=== PATIENT | male | born 1955 | race Caucasian/White ===

== ENCOUNTER → 2019-07-13 10:41 | Outpatient (CLI) | payer BC, SELFPAY ==
[2019-07-13 10:54] LABS: Bacteria Urine None Seen; RBC Urine None Seen (0-5/HPF); WBC Urine None Seen (0-5/HPF)
[2019-07-13 11:05] LABS: Add Manual Diff / Slide Review NO; Basophils Absolute Auto 0 /uL (0-100); Basophils Percent Auto 0.6 % (0-2); Eosinophils Absolute Auto 100 /uL (0-450); Eosinophils Percent Auto 2.1 % (2-4); Hematocrit 47.8 % (41-53); Hemoglobin 16.1 g/dL (13.5-17.5); Lymphocytes Absolute Auto 1600 /uL (1100-4500); Lymphocytes Percent Auto 33.9 % (25-40); Mean Corpuscular HGB Conc 33.6 % (30-36); Mean Corpuscular Hemoglobin 29.4 PG (26-34); Mean Corpuscular Volume 87.4 fL (80-100); Monocytes Absolute Auto 400 /uL (0-900); Neutrophils Absolute Auto 2700 /uL (1500-7000); Neutrophils Percent Auto 55.4 % (50-75); Platelet Count 229 X10^3/uL (150-400); Red Blood Cell Count 5.47 X10^6/uL (4.5-5.9); Red Cell Distribution Width 14.5 % (11.6-14.8); White Blood Cell Count 4.8 X10^3/uL (4.5-11.0)
[2019-07-13 11:48] LABS: Appearance Urine UA CLEAR; Bilirubin Urine UA NEGATIVE (NEGATIVE); Color Urine UA YELLOW; Glucose Urine UA NEGATIVE (Negative); Ketones Urine UA NEGATIVE (NEGATIVE); Leukocyte Esterase Urine UA NEGATIVE (NEGATIVE); Nitrite Urine UA NEGATIVE (Negative); Occult Blood Urine UA NEGATIVE (Negative); Protein Urine UA NEGATIVE (Negative); Urobilinogen Urine UA 0.2 E.U./dL (0.2); pH Urine UA 5.5 (4.5-8.0)
[2019-07-13 11:52] LABS: Alanine Aminotransferase 34 IU/L (21-72); Albumin 4.4 g/dL (3.5-5.0); Albumin Globulin Ratio 1.8 (1.0-2.8); Alkaline Phosphatase 57 U/L (38-126); Aspartate Aminotransferase 34 IU/L (17-59); BUN Creatinine Ratio 22.5 (6-22); Bilirubin Total 0.8 mg/dL (0.2-1.3); Blood Urea Nitrogen 18 mg/dL (9-20); Calcium 9.5 mg/dL (8.4-10.2); Carbon Dioxide 30 mmol/L (22-32); Chloride 102 mmol/L (98-107); Cholesterol 217 mg/dL (140-199); Estimated Glomerular Filt Rate > 60.0 mL/min (>60); Globulin 2.5 g/dL (1.7-4.1); Glucose 91 mg/dL (80-110); HDL Cholesterol 53 mg/dL (40-60); HEMOLYSIS < 15 (0-50); LDL Cholesterol Calculated 140 mg/dL (<100); Potassium 4.9 mmol/L (3.4-5.1); Sodium 141 mmol/L (137-145); Total Protein 6.9 g/dL (6.3-8.2); Triglycerides 122 mg/dL (35-150)
[2019-07-13 12:00] LABS: Culture Indicated Urine Cult Not Indicated; Urine Comments Microscopic Normal
[2019-07-13 12:21] LABS: Prostate Specific Antigen Scrn 3.57 ng/mL (0.1-4.0)
== END ==
PROVIDERS: PCP Family Medicine; Visit Provider Family Medicine
DX: A63.0 Anogenital (venereal) warts (principal); E78.2 Mixed hyperlipidemia; N13.8 Other obstructive and reflux uropathy; N40.0 Benign prostatic hyperplasia without lower urinary tract symptoms; N40.1 Benign prostatic hyperplasia with lower urinary tract symptoms; N52.9 Male erectile dysfunction, unspecified
CPT/HCPCS: 36415; 80053; 80061; 81001; 84443; 85025; G0103

== ENCOUNTER → 2020-11-30 06:53 | Outpatient (CLI) | payer MEDICARE, SELFPAY ==
[2020-11-30 08:46] LABS: Cholesterol 211 mg/dL (140-199); Glucose 88 mg/dL (80-110); HDL Cholesterol 56 mg/dL (40-60); LDL Cholesterol Calculated 130 mg/dL (<100); Triglycerides 126 mg/dL (35-150)
[2020-11-30 09:16] LABS: Prostate Specific Antigen Scrn 4.22 ng/mL (0.1-4.0)
[2020-11-30 09:56] LABS: Hep C Virus Ab w/Reflex Quant NEGATIVE s/c (NEGATIVE)
== END ==
PROVIDERS: PCP Registered Nurse Diabetes Educator; Referring Provider Registered Nurse Diabetes Educator; Visit Provider Registered Nurse Diabetes Educator
DX: Z00.00 Encounter for general adult medical examination without abnormal findings (principal); E78.2 Mixed hyperlipidemia; Z12.5 Encounter for screening for malignant neoplasm of prostate; Z80.42 Family history of malignant neoplasm of prostate
CPT/HCPCS: 36415; 80061; 82947; 86803; G0103

== ENCOUNTER → 2020-12-06 07:52 | Outpatient (CLI) | payer MEDICARE, SELFPAY ==
--- NOTE | 2020-12-06 07:54 | DI.US.S_ITS ---
PROCEDURE: US ABD AORTA ANEURYSM SCREEN INDICATIONS: ABDOMINAL AORTIC ANEURYSM SCREENING TECHNIQUE: Real time scanning was performed of the aorta and iliac arteries, with image documentation. COMPARISON: None. FINDINGS: Aorta: Proximal aortic diameter measures 2.8 cm. Mid-aorta measures 2.2 cm. Distal aortic diameter is 2.0 cm. Iliac arteries: Right common iliac artery measures 1.1 cm. Left common iliac artery measures 1.2 cm. IMPRESSION: Aortic ectasia. 5 year follow-up ultrasound recommended. Dictated by: Simon MARQUEZ Interpreted: Jeff Anna MD on 12/06/2020 at 10:11 Approved by: Jeff Anna M.D. on 12/06/2020 at 11:19
== END ==
PROVIDERS: PCP Registered Nurse Diabetes Educator; Referring Provider Registered Nurse Diabetes Educator; Visit Provider Registered Nurse Diabetes Educator
DX: Z13.6 Encounter for screening for cardiovascular disorders (principal); I77.811 Abdominal aortic ectasia
CPT/HCPCS: 76706

== ENCOUNTER → 2021-05-30 07:50 | Outpatient (CLI) | payer OTHER, MEDICARE, SELFPAY ==
[2021-05-30 11:06] LABS: Prostate Specific Antigen 3.93 ng/mL (0.10-4.00)
== END ==
PROVIDERS: PCP Registered Nurse Diabetes Educator; Referring Provider Specialist; Visit Provider Specialist
DX: R39.9 Unspecified symptoms and signs involving the genitourinary system (principal)
CPT/HCPCS: 36415; 84153

== ENCOUNTER → 2021-07-24 07:25 | Outpatient (CLI) | payer OTHER, MEDICARE, SELFPAY ==
[2021-07-24 09:12] LABS: Alanine Aminotransferase 25 IU/L (<50); Albumin Globulin Ratio 1.7 (1.0-2.8); Alkaline Phosphatase 47 U/L (38-126); Aspartate Aminotransferase 29 IU/L (17-59); BUN Creatinine Ratio 18.3 (6-22); Bilirubin Total 0.6 mg/dL (0.2-1.3); Blood Urea Nitrogen 17 mg/dL (9-20); Carbon Dioxide 35 mmol/L (22-32); Chloride 103 mmol/L (98-107); Cholesterol 181 mg/dL (140-199); Estimated Glomerular Filt Rate > 60.0 mL/min (>60); Globulin 2.4 g/dL (1.7-4.1); Glucose 80 mg/dL (80-110); HDL Cholesterol 51 mg/dL (40-60); HEMOLYSIS < 15 (0-50); LDL Cholesterol Calculated 114 mg/dL (<100); Potassium 4.7 mmol/L (3.4-5.1); Sodium 140 mmol/L (137-145); Total Protein 6.4 g/dL (6.3-8.2); Triglycerides 80 mg/dL (35-150)
== END ==
PROVIDERS: PCP Registered Nurse Diabetes Educator; Referring Provider Registered Nurse Diabetes Educator; Visit Provider Registered Nurse Diabetes Educator
DX: E78.5 Hyperlipidemia, unspecified (principal)
CPT/HCPCS: 36415; 80053; 80061

== ENCOUNTER → 2021-09-25 07:18 | Outpatient (CLI) | payer OTHER, MEDICARE, SELFPAY ==
[2021-09-25 09:11] LABS: Prostate Specific Antigen 4.58 ng/mL (0.10-4.00)
== END ==
PROVIDERS: PCP Registered Nurse Diabetes Educator; Referring Provider Specialist; Visit Provider Specialist
DX: N13.8 Other obstructive and reflux uropathy (principal); N40.0 Benign prostatic hyperplasia without lower urinary tract symptoms; N40.1 Benign prostatic hyperplasia with lower urinary tract symptoms; R97.20 Elevated prostate specific antigen [PSA]
CPT/HCPCS: 36415; 84153

== ENCOUNTER → 2022-04-29 11:27 | Outpatient (CLI) | payer OTHER, MEDICARE, SELFPAY ==
[2022-04-29 13:11] LABS: Prostate Specific Antigen 4.35 ng/mL (0.10-4.00)
== END ==
PROVIDERS: PCP Registered Nurse Diabetes Educator; Referring Provider Specialist; Visit Provider Specialist
DX: R97.20 Elevated prostate specific antigen [PSA] (principal)
CPT/HCPCS: 36415; 84153

== ENCOUNTER → 2022-07-25 11:54 | Outpatient (CLI) | payer MEDICARE, SELFPAY ==
[2022-07-25 14:34] LABS: Prostate Specific Antigen 4.54 ng/mL (0.10-4.00)
== END ==
PROVIDERS: PCP Registered Nurse Diabetes Educator; Referring Provider Specialist; Visit Provider Specialist
DX: R97.20 Elevated prostate specific antigen [PSA] (principal)
CPT/HCPCS: 36415; 84153

== ENCOUNTER → 2022-08-28 08:20 | Outpatient (CLI) | payer MEDICARE, SELFPAY ==
[2022-08-28 10:46] LABS: Alanine Aminotransferase 39 IU/L (<50); Albumin Globulin Ratio 1.5 (1.0-2.8); Alkaline Phosphatase 48 U/L (38-126); Aspartate Aminotransferase 35 IU/L (17-59); BUN Creatinine Ratio 20.2 (6-22); Bilirubin Total 0.6 mg/dL (0.2-1.3); Blood Urea Nitrogen 18 mg/dL (9-20); Calcium 8.8 mg/dL (8.4-10.2); Carbon Dioxide 29 mmol/L (22-32); Chloride 103 mmol/L (98-107); Cholesterol 199 mg/dL (140-199); Estimated Glomerular Filt Rate > 60 mL/min (>60); Globulin 2.6 g/dL (1.7-4.1); Glucose 82 mg/dL (80-110); HDL Cholesterol 50 mg/dL (40-60); HEMOLYSIS < 15 (0-50); LDL Cholesterol Calculated 131 mg/dL (<100); Potassium 4.3 mmol/L (3.4-5.1); Sodium 140 mmol/L (137-145); Total Protein 6.6 g/dL (6.3-8.2); Triglycerides 91 mg/dL (35-150)
== END ==
PROVIDERS: PCP Registered Nurse Diabetes Educator; Referring Provider Registered Nurse Diabetes Educator; Visit Provider Registered Nurse Diabetes Educator
DX: E78.5 Hyperlipidemia, unspecified (principal); I77.819 Aortic ectasia, unspecified site; Z80.42 Family history of malignant neoplasm of prostate
CPT/HCPCS: 36415; 80053; 80061; 84443

== ENCOUNTER → 2022-12-01 08:10 | Outpatient (CLI) | payer MEDICARE, SELFPAY ==
[2022-12-01 09:22] LABS: Cholesterol 134 mg/dL (140-199); HDL Cholesterol 51 mg/dL (40-60); LDL Cholesterol Calculated 65 mg/dL (<100); Triglycerides 91 mg/dL (35-150)
== END ==
PROVIDERS: PCP Registered Nurse Diabetes Educator; Referring Provider Registered Nurse Diabetes Educator; Visit Provider Registered Nurse Diabetes Educator
DX: E78.5 Hyperlipidemia, unspecified (principal)
CPT/HCPCS: 36415; 80061

== ENCOUNTER → 2023-01-27 11:01 | Outpatient (CLI) | payer MEDICARE, SELFPAY ==
[2023-01-29 10:08] LABS: PSA Free % 9.2 % (.)
== END ==
PROVIDERS: PCP Registered Nurse Diabetes Educator; Referring Provider Specialist; Visit Provider Specialist
DX: R97.20 Elevated prostate specific antigen [PSA] (principal)
CPT/HCPCS: 36415; 84153; 84154

== ENCOUNTER → 2023-02-24 15:21 | Outpatient (CLI) | payer MEDICARE, SELFPAY ==
--- NOTE | 2023-02-24 15:23 | DI.MRI.S_ITS ---
PROCEDURE: MR PELVIS WO/W CON INDICATIONS: BPH with LUTS TECHNIQUE: Coronal HASTE, axial T1 FSE with fat saturation, 3-plane nonbreath-hold T2 FSE. After the administration of contrast, dynamic axial, delayed axial and coronal VIBE or 2-D FLASH with fat saturation through the pelvis. Optional diffusion weighted imaging and ADC may be performed. COMPARISON: None. FINDINGS: Image quality: Diffusion weighted and dynamic contrast enhanced images are diagnostic. Prostate: Gland size is 4.8 x 3.5 x 4.8 cm; ellipsoid gland volume is 42 mL. Mild linear and wedge-shaped ADC hypointensities present within the prostate peripheral zone with indistinct T2 correlates (PI-RADS 2 findings). Enlargement of the prostate transitional zone with findings typical of benign prostatic hyperplasia. No large lesion strongly stands out against background parenchymal changes of BPH on T2 weighted images (PI-RADS 2 findings). Genitourinary system: Bladder wall appears mildly trabeculated. Distal ureters are non distended. Bowel and peritoneum: No pathologic free pelvic fluid. Inferior colon and small bowel loops are normal in caliber. Nodes and vessels: No pelvic or inguinal adenopathy by size criteria. Iliac vessels are normal in caliber. Bones: Asymmetric marrow enhancement of the right iliac bone adjacent to the SI joint. IMPRESSION: 1. No large or highly suspicious focal prostate lesion to direct biopsy. There is enlargement of the prostate transitional zone with findings typical of benign prostatic hyperplasia, with prostate volume estimated at 42 cc. 2. No suspicious lymph nodes identified in the imaged pelvis. 3. Nonspecific asymmetric marrow enhancement of the right iliac bone. Dedicated musculoskeletal protocol MRI of the pelvis may be helpful for further evaluation. Dictated by: David Boyer M.D. on 02/25/2023 at 6:31 Approved by: David Boyer M.D. on 02/25/2023 at 6:48
== END ==
PROVIDERS: PCP Registered Nurse Diabetes Educator; Referring Provider Specialist; Visit Provider Specialist
DX: N40.1 Benign prostatic hyperplasia with lower urinary tract symptoms (principal); R97.20 Elevated prostate specific antigen [PSA]; N13.8 Other obstructive and reflux uropathy
CPT/HCPCS: 72197; A9579

== ENCOUNTER → 2023-08-25 07:22 | Outpatient (CLI) | payer MEDICARE, SELFPAY ==
[2023-08-25 08:32] LABS: Alanine Aminotransferase 40 IU/L (<50); Albumin Globulin Ratio 1.5 (1.0-2.8); Alkaline Phosphatase 50 U/L (38-126); Aspartate Aminotransferase 37 IU/L (17-59); BUN Creatinine Ratio 20.4 (6-22); Bilirubin Total 0.5 mg/dL (0.2-1.3); Blood Urea Nitrogen 19 mg/dL (9-20); Calcium 8.6 mg/dL (8.4-10.2); Carbon Dioxide 28 mmol/L (22-32); Chloride 105 mmol/L (98-107); Cholesterol 134 mg/dL (140-199); Estimated Glomerular Filt Rate > 60 mL/min (>60); Globulin 2.6 g/dL (1.7-4.1); Glucose 94 mg/dL (80-110); HDL Cholesterol 45 mg/dL (40-60); HEMOLYSIS 17 (0-50); LDL Cholesterol Calculated 73 mg/dL (<100); Sodium 140 mmol/L (137-145); Total Protein 6.6 g/dL (6.3-8.2); Triglycerides 81 mg/dL (35-150)
== END ==
PROVIDERS: PCP Registered Nurse Diabetes Educator; Referring Provider Registered Nurse Diabetes Educator; Visit Provider Registered Nurse Diabetes Educator
DX: E78.5 Hyperlipidemia, unspecified (principal)
CPT/HCPCS: 36415; 80053; 80061

== ENCOUNTER → 2023-09-03 09:13 | Outpatient (CLI) | payer MEDICARE, SELFPAY ==
[2023-09-05 15:10] LABS: PSA Free % 8.7 % (.); PSA, Total 5.5 ng/mL (0.0-4.0)
== END ==
PROVIDERS: PCP Registered Nurse Diabetes Educator; Referring Provider Specialist; Visit Provider Specialist
DX: R97.20 Elevated prostate specific antigen [PSA] (principal)
CPT/HCPCS: 36415; 84153; 84154

== ENCOUNTER → 2023-09-14 18:31 | Outpatient (CLI) | payer MEDICARE, SELFPAY ==
--- NOTE | 2023-09-14 18:34 | DI.MRI.S_ITS ---
PROCEDURE: MR PELIS WO/W CON INDICATIONS: elevated PSA TECHNIQUE: Coronal HASTE, axial T1 FSE with fat saturation, 3-plane nonbreath-hold T2 FSE. After the administration of contrast, dynamic axial, delayed axial and coronal VIBE or 2-D FLASH with fat saturation through the pelvis. Optional diffusion weighted imaging and ADC may be performed. COMPARISON: [facility], MR, MR PELVIS WO/W CON, 02/24/2023, 15:30. FINDINGS: Image quality: Diffusion weighted and dynamic contrast enhanced images are diagnostic. Prostate: Gland size is 4.9 x 3.8 x 5.0 cm; ellipsoid gland volume is 48 mL. This includes a hypertrophied focal median lobe indenting on the base of the bladder. Morphology of the gland is otherwise fairly normal without significant transition zone hypertrophy and minimal transition zone nodularity. There are several mildly T2 hypointense striations throughout the peripheral zone. There are no dominant T2 hypointensities or significant abnormalities of ADC or diffusion signal. There is nodular heterogeneous enhancement within the hypertrophied transition zone and median lobe. This is considered PI-RADS 2. Genitourinary system: Bladder wall thickness is normal. Distal ureters are non distended. Bowel and peritoneum: No pathologic free pelvic fluid. Inferior colon and small bowel loops are normal in caliber. Mild sigmoid diverticulosis. Nodes and vessels: No pelvic or inguinal adenopathy by size criteria. Iliac vessels are normal in caliber. Soft tissues: No inguinal hernias. Bones: There is mild diffuse and heterogeneous enhancement in the right posterior iliac bone adjacent to the sacroiliac joint without corresponding signal abnormality on T1 or T2. The extent and morphology is stable compared to the prior exam. No enhancement of adjacent musculature. IMPRESSION: 1. Mildly enlarged prostate gland with hypertrophied median lobe. 2. No PI-RADS 4 or PI-RADS 5 lesions in the prostate. 3. No suspicious adenopathy. 4. Similar abnormal marrow enhancement in the right posterior iliac bone of uncertain etiology. Malignant disease is unlikely given stability without treatment, but not excluded. Dictated by: Keysha Arias M.D. on 09/15/2023 at 11:07 Approved by: Keysha Arias M.D. on 09/15/2023 at 12:04
== END ==
PROVIDERS: PCP Registered Nurse Diabetes Educator; Referring Provider Specialist; Visit Provider Specialist
DX: N40.0 Benign prostatic hyperplasia without lower urinary tract symptoms (principal); R97.20 Elevated prostate specific antigen [PSA]; M89.9 Disorder of bone, unspecified
CPT/HCPCS: 72197; A9579

== ENCOUNTER → 2023-12-04 12:19 | Outpatient (CLI) | payer MEDICARE, SELFPAY ==
[2023-12-11 18:41] LABS: PSA Free % 5.4 % (.)
== END ==
PROVIDERS: PCP Registered Nurse Diabetes Educator; Referring Provider Specialist; Visit Provider Specialist
DX: R97.20 Elevated prostate specific antigen [PSA] (principal)
CPT/HCPCS: 36415; 84153; 84154

== ENCOUNTER 2024-01-11 11:54 | Inpatient (IN) | payer MEDICARE, SELFPAY ==
[2024-01-07 09:41] VITALS: BMI 26.6
[2024-01-11] VITALS (10 sets, daily range): BP systolic 96–154; BP diastolic 62–96; PULSE 67–93; RESP 12–18; TEMP 36.3–37.9; O2SAT 92–99; BMI 27.3
--- NOTE | 2024-01-11 | PATH_ITS ---
[facility] Accession Number: [id number] No. of containers..04 Tissue . 01 Material submitted: . PART A: lymph node - RIGHT PELVIC LYMPH NODES PART B: lymph node - LEFT PELVIC LYMPH NODES PART C: prostate - PROSTATE WITH SEMINAL VESICLES PART D: bladder neck - ANTERIOR BLADDER NECK . 01 Diagnosis: A. RIGHT PELVIC LYMPH NODES, LYMPH NODE DISSECTION: Two lymph nodes, negative for metastatic adenocarcinoma (0/2). . B. LEFT PELVIC LYMPH NODES, LYMPH NODE DISSECTION: Three lymph nodes, negative for metastatic adenocarcinoma (0/3). . C. PROSTATE WITH ATTACHED VESICLES (55 GRAMS, 4.5 X 5.1 X 5.2 CM), RADICAL PROSTATECTOMY: Prostatic adenocarcinoma (conventional/acinar type). Kennedi grade 3+4=7. Grade group = 2. Percentage of pattern 4= Less than 5 %. Cribriform glands: Present (focal). Tumor involves bilateral lobes and involves approximately 31- 40% of the prostatic tissue examined (Dominant nodule, 1.1 cm, involving right and left lobes). Perineural invasion is identified. Extraprostatic extension: Not identified. Seminal vesicle invasion: Not identified. Intraductal carcinoma: Not identified. Lymphovascular invasion: Not identified. Margins: All margins are negative for invasive adenocarcinoma. Pathologic stage: pT2 pN0. Additional pathologic findings: Nodular prostatic hyperplasia and focal high- grade squamous intraepithelial lesion. . D. ANTERIOR BLADDER NECK: Benign prostatic parenchyma. No evidence of invasive adenocarcinoma. [facility] 01/18/2024 1528 Local . 01 Electronically signed: . Nadege Bridges MD, Pathologist NPI- [id number] . 01 Gross description: . A. Received in formalin, labeled with the patient's name, , and right pelvic lymph nodes, and consists of a yellow, lobulated soft tissue fragment measuring 3.2 x 2.1 x 0.3 cm. Palpation reveals two williamson lymph node candidates ranging from 0.2 to 0.9 cm in greatest dimension. Pump Servicer Supervisor sections re submitted as follows: A1: Single bisected lymph node candidate. A2: Single intact lymph node candidate. B. Received in formalin, labeled with the patient's name, , and left pelvic lymph nodes, and consists of a yellow, lobulated, soft tissue fragment measuring 2.8 x 2.1 x 1.3 cm. Palpation reveals three williamson lymph node candidates ranging from 0.3 to 1.2 cm in greatest dimension. Pump Servicer Supervisor sections are submitted as follows: B1: Single bisected lymph node candidate. B2: Two intact lymph node candidates. C. Received in formalin, labeled with the patient's name, , and prostate with seminal vesicles, and consists of a 55-gram prostate with seminal vesicles measuring 4.5 cm from superior to inferior, 5.1 cm from anterior to posterior, and 5.2 cm from medial to lateral. The right seminal vesicle measures 2.0 x 1.5 cm, while the left seminal vesicle measures 2.0 x 1.3 cm. The external surface is williamson and ragged with a nodular structure protruding from the base adjacent to the urethra measuring 1.7 x 1.5 x 1.5 cm. The urethra is probe patent. The right anterior surface is inked blue, the left anterior surface is inked green, and the posterior surface is inked black. The specimen is serially sectioned from apex to base into nine slices to reveal a williamson, nodular cut surface with an ill-defined, williamson, firm lesion within the anterior portion of slices 3-6 measuring 2.2 x 1.6 x 1.3 cm, and measuring 0.3 cm from the nearest blue-inked margin. Pump Servicer Supervisor sections are submitted as follows: C1: Right apex margin perpendicular. C2: Left apex margin perpendicular. C3-C4: Entire slice 2. C5-C8: Entire slice 3. C9-C12: Entire slice 4. C13-C16: Entire slice 5. C17-C20: Entire slice 6. C21-C22: Right base margin perpendicular. C23-C24: Left base margin perpendicular. C25: Right seminal vesicle and vas deferens. C26: Left seminal vesicle and vas deferens. D. Received in formalin, labeled with the patient's name, , and anterior bladder neck, and consists of a williamson soft tissue fragment with mucosa measuring 0.9 x 0.7 x 0.6 cm. The margin is inked blue, and the specimen is serially sectioned and submitted entirely in cassette D1. ([id number]) /MRV 01/18/2024 1027 Local . 01 Microscopic: . C. Within C2 (left apex), mildly atypical glands are identified that are evaluated with immunostain. A high molecular weight cytokeratin and p63 cocktail immunostain is positive around the glands of interest indicating the presence of basal cell layer. The findings confirm the benign nature of the glands. All controls stain approrpiately. . 01 Pathologist provided ICD-10: C61 . 01 CPT . 186416, 585711, [id number], [id number], [id number] Performed at: 01 [facility] [address] [place] [address] [address], [place], [place] [id number] MD Lance Evans MD Phone: [phone]
[2024-01-11] MEDS: LACTATED RINGERS 1,000 ML 21 ML IV ×2 (12:09→15:55)
--- NOTE | 2024-01-11 12:14 | PM.PREOP ---
Pre-operative Note Interval Note History & Physical reviewed/Exam performed by Physician: Yes Changes to H&P: No
--- NOTE | 2024-01-11 12:35 | SUR.OPER ---
Supine on padded OR bed, head on pillow, arms secured on padded arm boards at <90 degrees abduction, legs uncrossed, safety belt at thigh, tape over blanket over lower legs.
[2024-01-11 12:49] LABS: Hematocrit 47.5 % (41-53); Hemoglobin 16.1 g/dL (13.5-17.5)
[2024-01-11] MEDS: CEFAZOLIN 2 GM/100 ML PREMIX 100 ML IV (13:15)
[2024-01-11] MEDS: ACETAMINOPHEN IV 1,000 MG/100 ML VIAL 400 MG IV (13:25)
[2024-01-11 13:37] LABS: Appearance Urine UA CLEAR; Bilirubin Urine UA NEGATIVE (NEGATIVE); Color Urine UA YELLOW; Glucose Urine UA NEGATIVE (Negative); Ketones Urine UA NEGATIVE (NEGATIVE); Leukocyte Esterase Urine UA NEGATIVE (NEGATIVE); Nitrite Urine UA NEGATIVE (Negative); Occult Blood Urine UA NEGATIVE (Negative); Protein Urine UA NEGATIVE (Negative); Urobilinogen Urine UA 0.2 E.U./dL (0.2)
[2024-01-11 14:03] LABS: Bacteria Urine None Seen; Culture Indicated Urine Cult Not Indicated; RBC Urine None Seen (0-5/HPF); Squamous Epithelial Cell Urine None Seen (0-5/HPF); Urine Volume 10mL (spun); WBC Urine None Seen (0-5/HPF)
[2024-01-11] MEDS: TRANEXAMIC ACID 1,000 MG in SODIUM CHLORIDE 0.9% 100 ML 200 MG IV (14:13)
[2024-01-11] MEDS: BUPIVACAINE LIPOSOME 266 MG/20 ML VIAL INJ (14:41)
--- NOTE | 2024-01-11 16:47 | PM.OP.1 ---
Operative Date/Time/Diagnoses Date of procedure: 01/11/24 Time of procedure: 16:25 Pre-op diagnosis: 1. Prostate cancer. 2. Family history of cancer Post-op diagnosis: same Procedure & Clinicians Procedure: 1. Radical retropubic prostatectomy/bilateral pelvic lymphadenectomy (nerve-sparing). Same procedure as scheduled: Yes Indications: 1. Prostate cancer. 2. Family history of prostate cancer. Surgeon: Herberth Vo Franchise Manager: Meron Lara Click Yes if Unassisted: No Anesthesia Type: General, Spinal (Duramorph spinal +1.33% Exparel local anesthetic) and Local Operative Notes Findings: 1. Normal midline lower abdominal tissue planes. 2. Pelvic lymph nodes were grossly normal visually and palpably. 3. Dense adhesions and induration in the vicinity of the prostate base and seminal vesicles. Tissue planes indistinct versus normal. 4. Moderately protruding intravesical median lobe. Closure Type: primary Specimen(s): other (1. Bilateral pelvic lymph nodes. 2. Prostate with attached seminal vesicles.) Applied: catheter (Eighteen Hungarian [address] silicone catheter and gravity drainage.) and drain(s) (Fifteen Hungarian Edmar drain bulb self suction.) Estimated Blood Loss (mL): 300 Blood products transfused: none Procedure in detail: An psychiatric nursing assistant was integral and necessary for performance of this operation for assistance in retraction, visualization, hemostasis, and suturing. The patient was positioned in supine following successful placement of Duramorph spinal anesthetic. General anesthesia is administered. The abdomen, genitalia, and groin were then prepped and draped in sterile fashion. A [address] Fletcher catheter was then inserted of the lower urinary tract, passing of the bladder in the balloon filled to 20 cc. The bladder contents were drained and the catheter was set to gravity drainage. A midline infraumbilical incision was made just above the pubic symphysis in the midline through the layers of skin, Maggie's fascia and subcutaneous fat using sharp, and blunt technique. The rectus fascia was then divided in the midline using the LigaSure impact device. Plane was developed between the rectus muscles and were then retracted laterally. The anterior and lateral pelvic sidewalls were then exposed using blunt technique. Next, bilateral pelvic lymph node dissection was undertaken using the same steps and maneuvers as follows: The thin adventitia overlying the external iliac vein was divided along its length. Pelvic coty packet within reflected off the lateral pelvic sidewall and mobilized. A vein retractor was utilized gently maneuver the external iliac vein to optimize access and visualization. In both instances the obturator nerve and vasculature was observed and preserved. The LigaSure impact device was then used to divide the coty chain proximally at the bony pelvic sidewall, and distally near the bifurcation of the iliac vein. The specimens were labeled as to their site of procurement and submitted to pathology for routine gross and microscopic examination. Next the endopelvic fascia was carefully defined neither side of the prostate. The prostatic fascia was then incised longitudinally along the midportion of the prostate bilaterally and the fascia layers were reflected posteriorly toward the rectal wall under attempt to preserve the cavernous nerves. The puboprostatic ligaments were divided bilaterally and divided using the impact LigaSure device. A large Felix clamp was then employed to gather and isolate the dorsal venous complex. 0 Monocryl suture ligature was then placed in a [id number] fashion underneath the pubic arch. Were distally it was divided using the LigaSure impact device. Hemostasis was excellent. Gentle blunt dissection was undertaken in the vicinity of the prostate apex to isolate the urethra. A right angle clamp was then manipulated beneath the urethra and anterior to the rectal wall and elevated for exposure. The urethra was then divided just distal to the prostate apex. The indwelling Fletcher catheter was then detached from gravity drainage and transected just proximal to the why and was then brought into the wound to aid in prostate manipulation and mobilization anteriorly and cranially. The rectal urethralis musculature was then isolated and divided from the midline laterally to a point where the vascular pedicles were encounter. A plane was then developed between the prostate in the anterior rectal wall using blunt dissection. The vascular pedicles were then taken down successively by isolating small segments and then dividing with placement of large locking plastic hemoclips on the patient's side and division with both sharp and LigaSure impact device technique. The pedicles near the vicinity the seminal vesicle were adherent to the structures inappropriate tissue planes were difficult to access and follow. Therefore, the anterior bladder neck was carefully to divided to separate the bladder neck from the prostate base circumferentially. Blunt and cautery technique were utilized. The urethra was then divided anteriorly and careful inspection revealed a modest protruding intravesical lobe. Division of the mucosa was undertaken at the interface of the median lobe and bladder neck carefully. He appropriate plane was then developed to separate the bladder neck in its entirety from the base of the prostate. Continued painstaking meticulous blunt, sharp, cautery dissection was undertaken to access the indurated and dense vascular pedicles in the vicinity of the seminal vesicles. Eventually seminal vesicles were identified. They were very short in length and were mobilized bilaterally. The ampulla of the vas were then identified bilaterally. Large plastic Humalog clips were then applied proximally and distally with sharp transection. The prostate with attached seminal vesicles were then submitted for routine gross and microscopic examination. The bladder neck was then carefully inspected. The interior of the bladder was inspected as well. The ureteral orifices were visualized bilaterally and were 1+ cm from the margin of the bladder neck. A fishmouth repair of the enlarged bladder neck was then conducted with 2-0 Monocryl using a vertical mattress technique. 4-0 Monocryl was then utilized to a face the mucosa using in imbricated method to efface the mucosa in reconstruct the bladder neck to appropriate diameter. Next, the Bill was advanced into the penile meatus and then proximally to the urethral stump near the pelvic floor. The flanges were engaged for optimal visualization. Two Monocryl were then placed at the 2, 4, 6, 8, and 10 positions from outside the your urethral stump to the inside. The same sutures in turn were then passed from inside to out at the neobladder neck in corresponding positioned. The sound was then disengaged and removed. An 18 Hungarian silicone catheter was then advanced under direct visualization into the lower urinary tract and then brought into the bladder lumen through the neobladder neck. The anastomotic sutures were then tied snugly down circumferentially to complete the vesicourethral anastomosis. The catheter balloon was then filled to 15 cc and irrigated. There was no clot or gross blood. The catheter was then placed to gravity drainage. Next, a 15 Hungarian Edmar drain was positioned in the space of Retzius and brought out through a separate stab incision to the right of the midline incision. It was secured to the skin with 2-0 silk using Selvin sandal technique and usual fashion. The midline rectus fascia was then reapproximated using running 0 PDS, starting at the superior in the inferior apex and then running 1 another together and tied 1 another together at a proximally of the midpoint of the incision. Maggie's fascia was then reapproximated using running 2-0 Vicryl. The skin was closed using a running subcuticular 4-0 Monocryl. The skin surface was cleaned and dried. Telfa gauze was then trimmed and tailored appropriately to cover the incision line and the drain site. Over the Telfa gauze a transparent Op site dressing was applied for a bio occlusive top dressing. The patient was then awakened, transferred to [facility], and then transferred to recovery in stable condition. Complications: none Post-operative Condition: stable Disposition: PACU Plan for aftercare: Admit to acute care.
[2024-01-11] MEDS: LACTATED RINGERS 1,000 ML 125 ML IV (17:43)
[2024-01-12] MEDS: LACTATED RINGERS 1,000 ML 125 ML IV ×2 (01:28→10:40)
[2024-01-12] MEDS: OXYCODONE IR 5 MG TABLET PO (04:14)
[2024-01-12 04:21] VITALS: BP 113/50; PULSE 61; RESP 16; TEMP 36.7; O2SAT 98
[2024-01-12] MEDS: PANTOPRAZOLE DR 20 MG TABLET PO (06:00)
--- NOTE | 2024-01-12 06:20 | PC.NURSE ---
Fletcher & sarah care done. noted scant amount of blood in the meatus, urine is clearing noted in the tubing. Edmar drain putting out lots of drainage light pink. 420 cc. Will cont. plan of care & monitor.
--- NOTE | 2024-01-12 07:25 | PC.NURSE ---
0658 Dr. Vo notified that the jenni drain was putting out lots of drainage.Ordered to take off suction & leave the bulb open & send urine for creatinine. All orders implemented & report given to day RN.
[2024-01-12 07:49] LABS: Creatinine, Serum (CRCL) 0.86 mg/dL (0.66-1.25)
[2024-01-12 08:38] LABS: Collection Time Urine 0 Hours; Total Volume Urine 60 mL
[2024-01-12 08:39] LABS: Patient Height Urine 67 inches; Patient Weight Urine 170 lbs
--- NOTE | 2024-01-12 09:33 | CM.DANOTE ---
Initial DCP Assessment Visit Note Reviewed EMR and team rounds for pt's medical status and anticipated home d/c needs. Met with pt/Significant Other while he was walking the hallway this morning. Pt found to be alert/oriented, but weak. His catheter bag clearly showed active hematuria. He and his SO reside independently in their own home here in [place], likely will remain inpt for 2-3 days post-op to monitor pain and drainage concerns. Payor: Medicare Attending: Dr. Martinez Pt is a 68 year-old M who is post-op day 1 from a planned radical prostatectomy due to a new prostate cancer diagnosis. Pt is being monitored for wound drainage and pain management, no DCP needs are being identified at this time for d/c and OP needs. He will plan to f/u with Dr. Martinez pot-operatively to review his pathology report and discuss next treatment steps. DCP will continue to monitor and assist with any further evolving needs. Discharge Planning/Care Management Advanced directive, confirm from FAMILY Start: 01/11/24 18:17 Freq: Q24H Status: Active Protocol: Document 01/11/24 21:00 MP (Rec: 01/11/24 22:09 MP [id number]) Advance Directive, confirm on record Time 21:00 Person contacted Pt. Copy received No CM Discharge Assessment Start: 01/12/24 09:23 Freq: Status: Active Protocol: Document 01/12/24 09:24 DPL (Rec: 01/12/24 09:29 DPL [id number]) Discharge Planning Assessment Assigned Strategic Marketing Associate DILLON Jaffe Advance Directives? No Advance Directives on File No History Provided By Patient,Significant Other, Medical Record Expected Length of Stay 2 Has Patient been admitted in last 30 No days? Prior Living Arrangements House Household Members significant other Type of transporation used prior to Drives own vehicle admit Independent with ADL's Yes Is patient alert and oriented? Yes Caregiver for Another No DME Already Rented / Owned FWW / Walker Comment OP Urology f/u for review of pathology and next steps. Barriers to Discharge No Discharge Plan Home Transportation Arrangement Significant Other Referrals Initiated None needed Whiteboard Updated in Patient Room with Yes name and ext. # of Strategic Marketing Associate Review Status In Process Please Provide Date Initial DC 01/12/24 Assessment Was Performed Pre-Anesthesia Assessment Start: 01/07/24 09:41 Freq: Status: Active Protocol: Document 01/07/24 09:41 CAB (Rec: 01/07/24 10:24 [id number]) Pre-Anesthesia Assessment Patient Information Reviewed Via Phone Assessment Assessment Completed With Patient Primary Care Provider Sammy Sandoval Seen Specialist in Last 12 Months Yes Specialist Seen Urologist Primary Language Sami Mortgage Processing Clerk Required No Height 170.18 cm Weight 77.111 kg Body Mass Index (BMI) 26.6 Hearing Ability Normal Visual Impairment Blind Dentition Type Teeth, Natural Present Barriers to Learning Visual Comment Right eye prosthesis Hx Anesthesia Reactions No Hx Family Anesthesia Reaction No Hx Malignant Hyperthermia No Hx Blood Transfusions No Anesthesia Review Requested No Grinding Mill Operator No alcohol intake current alcohol intake frequency 0-2 drinks per day Smoking Status Never smoker Substance Use Type does not use Pain Present Pain Reported History of Falling (Recent or History of No ) Patient is completely paralyzed or No completely immobile Mental Status Oriented to own ability Is patient on oxygen? No Does patient have JORGENSEN/SOB No Hx Sleep Apnea No Currently Taking a Beta Laila No Can You Climb a Flight of Stairs Without Yes SOB Hx Chest Pain No Hx SOB No Hx Syncope or Dizziness No Anti-Coagulant Therapy No Has a Candle Molder Machine No Cardiac Testing No Hx Pacemaker/ICD No Pacemaker Rep Required? No Cardiac Clearance Received No Diet Type At Home Regular Dysphagia No Gastrointestinal Symptoms Reflux Genitourinary Symptoms Dribbling Bladder Pattern Frequency,Incontinent,Urgency Urinary Catheter Present No Hx Urinary Self Catheterization No Diabetes No Hx Drug Resistant Organism No Presence of External or Internal Medical Yes: Right eye prosthesis Devices Received a COVID vaccine? Yes: J&J Received all doses? No Marital Status Unmarried Lives With significant other Current Living Arrangements House Number of Floors (Floors) Two Floors Support System Significant Other Does the Patient Have Assistance After Yes Surgery Patient Discharge Plan Description Return Home Comment Pt advised 2-3 day length of stay per surgeon Feels Safe in Current Environment Yes Been Physically Hurt or Threatened By a No Person in Current Environment Do you have thoughts of harming yourself None or others? Are you currently considering suicide? No Do you have a plan to hurt yourself or No Plan others? Do You Have Any Spiritual Beliefs That No May Affect Your HC Choices? Do You Have Any Cultural Practices That No May Affect Your HC Choices? Who Can We Speak to About Patient's Care Family friends Identifying Code for Release of Patient Declines to issue Information Health Care Proxy/Next of Kin Judi (S.O.) Health Care Proxy Emergency Contact Name Judi (S.O.) Emergency Contact Advance Directives? Yes Advance Directives on File No Power of Clerk Of Court Yes Power of Clerk Of Court Name Judi (S.O.) Power of Clerk Of Court PAC Instructions Assistance for 24 hours post- op,Medications to take/avoid, Nasal antibiotic,No ETOH/ petroleum product on skin DOS, NPO,Pre-surgical wash,Sensory aids,Sturdy shoes/comfortable clothes,Do not bring valuables and remove jewelry
[2024-01-12] MEDS: ENOXAPARIN 40 MG/0.4 ML SYRINGE SUBCUT (09:50)
--- NOTE | 2024-01-12 13:50 | P.PN_ITS ---
Subjective Subjective Date Patient Seen: 01/12/24 Time Patient Seen: 07:00 Interval history: Postoperative day 1 status post radical retropubic prostatectomy and bilateral pelvic lymphadenectomy. He reports an overall uneventful night. Nursing, and this morning that drain outputs became very high during the night. He is passed gas and has had no nausea or vomiting. He tolerated evening meal. He has not yet ambulated. Exam Vital Signs (past 8 hours): Oxygen Delivery Method Room Air Oxygen Flow Rate 0 Narrative Exam Narrative: Resting comfortably in bed and in no distress. Chest-equal and unlabored expansion bilaterally. Heart-regular rate and rhythm. Abdomen-dressing and XAVI drain intact. There is blood-tinged straw-colored drain output. Extremities-no edema, or cyanosis. Objective Labs 01/11/24 12:34 01/12/24 06:58 Labs: Laboratory Results - last 24 hr 01/11/24 01/12/24 13:22 06:58 Creatinine 0.86 Urine Color Yellow Urine Appearance Clear Urine pH 5.0 Ur Specific [place] 1.010 Urine Protein Negative Urine Glucose (UA) Negative Urine Ketones Negative Urine Occult Blood Negative Urine Nitrate Negative Urine Bilirubin Negative Urine Urobilinogen 0.2 Ur Leukocyte Esterase Negative Urine RBC None seen Urine WBC None seen Ur Squamous Epith Cells None seen Urine Bacteria None seen Ur Culture Indicated? Cult not indicated Vol Urine Centrifuged 10ml (spun) Urine Collection Time 0 Urine Total Volume 60 Urine Creatinine 9.0 Height (in) 67 Weight (lb) 170 Creatinine Clearance 0.0 Corrected Creat Clear 0.0 PFSH Medical History (Updated 01/07/24 @ 10:04 by Carmencita Saini RN) Family history of prostate cancer Prostate cancer Tubular adenoma of colon Elevated PSA Elevated PSA High prostate specific antigen (PSA) Chronic GERD Aortic ectasia Dyslipidemia Family history of prostate cancer in father Vision disorder Plantar warts (~1971) Shoulder pain (~2009) Ankle pain (~1976) Partial blindness (~1961) Hemorrhoid (~1985) Colon polyps (~2006) Surgical History (Updated 01/07/24 @ 10:06 by Carmencita Saini RN) H/O vasectomy Anesthesia History of eye surgery Social History marital status: household members: significant other Smoking Status: Never smoker alcohol intake: current caffeine: Yes Assessment & Plan Assessment & Plan narrative: Assessment: 1. Stable postop day 1 status post radical retropubic prostatectomy and bilateral pelvic lymphadenectomy. 2. Excessive drain output. Likely secondary to drain suction proximity to the vesicle urethral anastomosis. 3. Pathology pending. Plan: 1. Advanced diet and activity today. Reassessment this afternoon. 2. Leave drain off bulb self suction. Leave drain to gravity drainage in non- compressed bulb. 3. Follow-up final pathology when report final. 4. Catheter care and bag use instruction before discharge. Quality VTE Deep Vein Thrombosis/Pulmonary Embolism Present on Admission: No
[2024-01-12] MEDS: ACETAMINOPHEN 325 MG TABLET 650 MG PO ×2 (15:15→23:59)
[2024-01-12 18:00] VITALS: BP 120/67; PULSE 70; RESP 18; O2SAT 98
[2024-01-12 21:12] VITALS: BP 115/70; PULSE 65; RESP 18; TEMP 36.3; O2SAT 95
[2024-01-13 07:00] VITALS: BP 122/63; PULSE 58; RESP 16; TEMP 36.3; O2SAT 97
[2024-01-13] MEDS: ACETAMINOPHEN 325 MG TABLET 650 MG PO (08:22)
[2024-01-13] MEDS: ENOXAPARIN 40 MG/0.4 ML SYRINGE SUBCUT (08:23)
--- NOTE | 2024-01-13 10:19 | CM.DPC ---
DCP Cont. Reviewed EMR and team rounds for status updates. Pt has been medically cleared for d/c home today. His Life Partner will transport him home and provide for his care and assistance needs postoperatively. No further needs identified for DCP at this time.
--- NOTE | 2024-01-13 10:29 | PC.NURSE ---
Patient is A&OX4, ambulating around his room independently with sams bag and SANDRA drain. SANDRA output this a.m. 50 cc of serosanguineous bloody liquid before dc'd. Urine output 250 cc red tinged. MD Martinez at bedside this a.m. clearing patient for discharge after education on leg bag/day big bag /night and sandra drain removal. He verbalizes understanding of site care, medications, leg bag care, as well as activity restrictions and follow up appointment on 01/25/24. He is escorted by RN to private vehicle with and all of his personal belongings as well as catheter supplies at 0955.
--- NOTE | 2024-01-13 18:25 | P.DS_ITS ---
History of Present Illness History of Present Illness Date Patient Seen: 01/13/24 Time Patient Seen: 06:50 Chief complaint: INPT Narrative: 68-year-old male admitted 01/11/2024, for radical retropubic prostatectomy and bilateral pelvic lymphadenectomy. Discharge Providers Provider Date of admission: 01/11/24 11:54 Discharge Date: 01/13/24 Primary care physician: MARÍA Yun Discharge provider: Herberth Vo MD Summary Hospital Course Discharge Diagnosis: 1. Prostate cancer. Hospital Course: The patient was admitted on 01/11/2024 and underwent uncomplicated radical retropubic prostatectomy and bilateral pelvic lymphadenectomy under general and Duramorph spinal anesthesia. His postoperative course was overall smooth and unremarkable. He tolerated general diet immediately the evening following surgery, had return of bowel function, was able to transfer and ambulate independently and required no intravenous narcotic analgesia. Drain output was noted to be excessive during the 1st postoperative night. Bulb self suction was discontinued in the drain was left to gravity drainage with subsequent marked decrease in output. Activity and diet were increased on the 1st postoperative day without incident. On the morning of the 2nd postoperative day he was stable for discharge. Exam Vital Signs (past 8 hours): Oxygen Delivery Method Room Air Oxygen Flow Rate 0 Narrative Exam Narrative: Sitting upright in the bedside chair in no acute distress. Head/neck-sclera clear pupils are equal and round bilaterally. No visible evidence of adenopathy or JVD. Chest-equal and unlabored expansion bilaterally. Heart-normal rate and rhythm. Abdomen-dressing and XAVI drain are intact. There is scant light maroon drain output in the bulb. Extremities no edema, cyanosis, or tenderness. Objective Labs 01/11/24 12:34 01/12/24 06:58 [facility] Medical History (Updated 01/07/24 @ 10:04 by Carmencita Saini RN) Family history of prostate cancer Prostate cancer Tubular adenoma of colon Elevated PSA Elevated PSA High prostate specific antigen (PSA) Chronic GERD Aortic ectasia Dyslipidemia Family history of prostate cancer in father Vision disorder Plantar warts (~1971) Shoulder pain (~2009) Ankle pain (~1976) Partial blindness (~1961) Hemorrhoid (~1985) Colon polyps (~2006) Surgical History (Updated 01/07/24 @ 10:06 by Carmencita Saini RN) H/O vasectomy Anesthesia History of eye surgery Social History marital status: household members: significant other Smoking Status: Never smoker alcohol intake: current caffeine: Yes Discharge Assessment & Plan Assessment and Plan Assessment: 1. Stable postoperative day 2 status post radical retropubic prostatectomy and bilateral pelvic lymphadenectomy. 2. Indwelling Sams catheter. 3. Pathology pending. Plan of Treatment: 1. Discharge home today with indwelling Sams catheter. 2. Provide catheter care and use instruction. 3. Schedule supervised catheter removal and voiding trial in approximately 2 weeks in the Urology Clinic. 4. Telephonic follow-up to discuss final pathology report when available. Discharge Plan Discharge Plan Patient Disposition: Home Provider Discharge Comment: Urology Clinic for Sams catheter removal for 01/25/2024 @ 8:45 (check in @ 8:30) Discharge orders & Medications Prescriptions: New oxycodone 5 mg Tablet 5 mg PO Q4H PRN (Reason: Pain, Moderate (4-6)) Qty: 15 0RF enoxaparin [Lovenox] 40 mg/0.4 mL Syringe 40 mg SUBCUT DAILY Qty: 12 0RF ciprofloxacin HCl 250 mg tablet 250 mg PO Q12H Qty: 6 0RF Continued omeprazole 20 mg capsule,delayed release(DR/EC) 20 mg PO DAILY Qty: 90 3RF rosuvastatin 5 mg tablet 5 mg PO Q OTHER DAY Rx Instructions: to be taken in the evening tadalafil 5 mg tablet 5 mg PO DAILY PRN (Reason: Sexual Activity) Discontinued tamsulosin 0.4 mg capsule 0.8 mg PO QAM Qty: 180 3RF Follow up/Referrals: Herberth Vo MD [Physician] - 01/25/24 8:45 am (you have a appointment 01/24 @ 8:45 (check in @ 8:30)for sams catheter removal ) Sammy Sandoval ARNP [Primary Care Provider] - Activity Restrictions/Additional Instructions: Refrain from lifting objects greater than 15 lb x 4 weeks. Diet/Activity/Treatments Diet: Diet as Tolerated Activity: Ambulate frequently. Avoid lifting objects heavier than 15 lb x 4 weeks. Cold/Heat Therapy: As needed to incision for comfort. Catheter: 2-way Sams Catheter comment: Leg bag-day use. Large bag-in-home in at night. Skin/Wound/Dressing Care Skin care: May shower daily, and leave incision open to air. No submersion x2 weeks. Report to your healthcare provider any signs of infection, such as:: chills, fever, night sweats, increased pain, unusual drainage and unusual redness Visit Report/Discharge Packet Instructions: DI for Radical Prostatectomy, DI for Prescription Opioid Use Stand Alone Forms: Surgery Discharge Discharge Data Primary Care Provider: Sammy Sandoval VTE Deep Vein Thrombosis/Pulmonary Embolism Present on Admission: No
== END 2024-01-13 09:56 | disposition home or self-care (01) | DRG 708 ==
PROVIDERS: Admitting Provider Specialist; PCP Registered Nurse Diabetes Educator; Referring Provider Specialist; Visit Provider Specialist
PROC: 0VT00ZZ Resection of Prostate, Open Approach (ICD-10-PCS; principal; 2024-01-11 13:15)
DX: C61 Malignant neoplasm of prostate (principal); K21.9 Gastro-esophageal reflux disease without esophagitis; E78.5 Hyperlipidemia, unspecified
CPT/HCPCS: 36415; 55845; 81001; 82575; 85014; 85018; 86850; 86900; 86901; C9290; J0136; J0690; J1650; J2274; J2405; J2704; J3010; J3490

== ENCOUNTER → 2024-02-17 07:07 | Outpatient (CLI) | payer MEDICARE, SELFPAY ==
[2024-02-04 13:37] VITALS: BMI 27.3
[2024-02-17 08:58] LABS: Prostate Specific Antigen < 0.064 ng/mL (0.10-4.00)
== END ==
PROVIDERS: PCP Registered Nurse Diabetes Educator; Referring Provider Specialist; Visit Provider Specialist
DX: N40.0 Benign prostatic hyperplasia without lower urinary tract symptoms (principal); C61 Malignant neoplasm of prostate; R97.20 Elevated prostate specific antigen [PSA]; Z80.42 Family history of malignant neoplasm of prostate
CPT/HCPCS: 36415; 84153

== ENCOUNTER → 2024-05-23 08:09 | Outpatient (CLI) | payer MEDICARE, SELFPAY ==
[2024-02-04 13:37] VITALS: BMI 27.3
[2024-05-23 09:59] LABS: Prostate Specific Antigen < 0.064 ng/mL (0.10-4.00)
== END ==
PROVIDERS: PCP Registered Nurse Diabetes Educator; Referring Provider Specialist; Visit Provider Specialist
DX: Z85.46 Personal history of malignant neoplasm of prostate (principal); Z80.42 Family history of malignant neoplasm of prostate
CPT/HCPCS: 36415; 84153

== ENCOUNTER → 2024-07-26 07:11 | Outpatient (CLI) | payer MEDICARE, SELFPAY ==
[2024-02-04 13:37] VITALS: BMI 27.3
[2024-07-26 08:50] LABS: Alanine Aminotransferase 40 IU/L (<50); Albumin 3.9 g/dL (3.5-5.0); Albumin Globulin Ratio 1.7 (1.0-2.8); Alkaline Phosphatase 57 U/L (38-126); Aspartate Aminotransferase 34 IU/L (17-59); BUN Creatinine Ratio 17.8 (6-22); Bilirubin Total 0.6 mg/dL (0.2-1.3); Blood Urea Nitrogen 18 mg/dL (9-20); Carbon Dioxide 30 mmol/L (22-32); Chloride 104 mmol/L (98-107); Cholesterol 165 mg/dL (140-199); Estimated Glomerular Filt Rate > 60 mL/min (>60); Globulin 2.3 g/dL (1.7-4.1); Glucose 99 mg/dL (80-110); HDL Cholesterol 49 mg/dL (40-60); HEMOLYSIS < 15 (0-50); LDL Cholesterol Calculated 97 mg/dL (<100); Potassium 4.3 mmol/L (3.4-5.1); Sodium 139 mmol/L (137-145); Total Protein 6.2 g/dL (6.3-8.2); Triglycerides 97 mg/dL (35-150)
== END ==
PROVIDERS: PCP Registered Nurse Diabetes Educator; Referring Provider Registered Nurse Diabetes Educator; Visit Provider Registered Nurse Diabetes Educator
DX: E78.5 Hyperlipidemia, unspecified (principal); Z51.81 Encounter for therapeutic drug level monitoring
CPT/HCPCS: 36415; 80053; 80061

== ENCOUNTER → 2024-11-03 14:01 | Outpatient (CLI) | payer MEDICARE, SELFPAY ==
[2024-02-04 13:37] VITALS: BMI 27.3
== END ==
PROVIDERS: PCP Registered Nurse Diabetes Educator; Referring Provider Physician Assistant; Visit Provider Surgery
DX: S61.217A Laceration without foreign body of left little finger without damage to nail, initial encounter (principal)
CPT/HCPCS: 97597; 99203; 99212

== ENCOUNTER → 2024-12-21 07:27 | Outpatient (CLI) | payer MEDICARE, SELFPAY ==
[2024-02-04 13:37] VITALS: BMI 27.3
[2024-12-21 09:14] LABS: Prostate Specific Antigen < 0.064 ng/mL (0.10-4.00)
== END ==
PROVIDERS: PCP Registered Nurse Diabetes Educator; Referring Provider Urology; Visit Provider Urology
DX: R97.20 Elevated prostate specific antigen [PSA] (principal); Z85.46 Personal history of malignant neoplasm of prostate; Z80.42 Family history of malignant neoplasm of prostate
CPT/HCPCS: 36415; 84153

== ENCOUNTER 2025-08-16 09:41 | Emergency (ER) | payer MEDICARE, SELFPAY ==
[2024-02-04 13:37] VITALS: BMI 27.3
[2025-08-16] VITALS (13 sets, daily range): BP systolic 133–159; BP diastolic 76–100; PULSE 43–84; RESP 10–28; TEMP 36.5; O2SAT 93–98; BMI 28.1
--- NOTE | 2025-08-16 09:49 | DI.RAD.S_ITS ---
PROCEDURE: XR CHEST 1V INDICATIONS: Chest Pain TECHNIQUE: One view of the chest was acquired. COMPARISON: None. FINDINGS: Surgical changes and devices: None. Lungs and pleura: An incomplete inspiratory result is noted, causing a crowded appearance to the lung markings. No focal infiltrates are seen. No pneumothorax or significant pleural effusions are seen. Mediastinum: Mediastinal contours appear normal. Heart size is normal. Bones and chest wall: No suspicious bony lesions. Age-appropriate bony degenerative changes are seen. Overlying soft tissues appear unremarkable. IMPRESSION: Low lung volumes, without an acute abnormality seen by plain film. Dictated by: Cristofer Sheppard M.D. on 08/16/2025 at 10:01 Approved by: Cristofer Sheppard M.D. on 08/16/2025 at 10:02
--- NOTE | 2025-08-16 09:54 | EKG_ITS ---
[place] [address] [address] [address] Test Date: 2025-08-16 Pat Name: Sameer Gtz Department: Room: Gender: Male [employer] Ship: ILIR JOSUE : 1955 Requested By: Order Number: [id number] Reading MD: Sameer Summers MD Measurements Intervals [place] Rate: 66 P: 37 WI: 156 QRS: -26 QRSD: 88 T: 44 QT: 436 QTc: 457 Interpretive Statements Normal sinus rhythm Minimal voltage criteria for LVH, may be normal variant ( R in aVL ) Electronically Signed On 08-17-2025 7:19:12 PDT by Sameer Summers MD
[2025-08-16 10:11] LABS: INR 0.9 (0.9-1.3); Prothrombin Time 10.2 SECONDS (9.4-12.5)
[2025-08-16 10:12] LABS: Add Manual Diff / Slide Review NO; Hematocrit 48.5 % (41-53); Hemoglobin 16.6 g/dL (13.5-17.5); Lymphocytes Absolute Auto 2500 /uL (1100-4500); Mean Corpuscular HGB Conc 34.2 % (30-36); Mean Corpuscular Hemoglobin 29.2 PG (26-34); Mean Corpuscular Volume 85.4 fL (80-100); Platelet Count 182 X10^3/uL (150-400)
--- NOTE | 2025-08-16 10:15 | ED_ITS ---
HPI - Dizziness General Chief Complaint: Dizziness Stated Complaint: dizzy 15 minutes feeling off Time Seen by Provider: 08/16/25 09:43 History of Present Illness HPI Narrative: Patient is a 70-year-old healthy male presenting to day with sudden onset dizziness. He reports that he was at work he went outside he came back sat down at his desk suddenly felt very dizzy. He is feeling nauseous it is definitely worse with positioning sitting up as worse turning his head his worse. No prior history of vertigo. He has not had any chest pain or palpitations. Overall feeling well. Related Data Home Medications ?Medication ?Instructions ?Recorded ?Confirmed rosuvastatin 5 mg tablet 5 mg PO Q OTHER DAY 01/07/24 06/29/25 Previous Rx's ?Medication ?Instructions ?Recorded omeprazole 20 mg capsule,delayed 20 mg PO DAILY #90 ca ps 08/03/24 release rosuvastatin 5 mg tablet 5 mg PO DAILY #90 tabs 08/03 meclizine 25 mg tablet 25 mg PO TID PRN dizziness # 20 tabs 08/16/25 ondansetron 4 mg disintegrating 4 mg PO Q8H PRN nausea and 08/16/25 tablet vomiting #10 tabs Allergies Allergy/AdvReac Type Severity Reaction Status Date / Time No Known Drug Allergies Allergy Verified 06/29/25 08:00 Patient History Medical History History of malignant neoplasm of prostate Incomplete bladder emptying BPH w urinary obs/LUTS Family history of prostate cancer Prostate cancer Tubular adenoma of colon Elevated PSA High prostate specific antigen (PSA) Chronic GERD Aortic ectasia Dyslipidemia Family history of prostate cancer in father Vision disorder Plantar warts (~1971) Shoulder pain (~2009) Ankle pain (~1976) Partial blindness (~1961) Hemorrhoid (~1985) Colon polyps (~2006) Surgical History H/O vasectomy Anesthesia History of eye surgery Social History marital status: household members: significant other alcohol intake: current caffeine: Yes alcohol intake frequency: 0-2 drinks per day Exam Initial Vital Signs Initial Vital Signs: Vital Signs Pulse Rate 83 08/16/25 09:46 Pulse Oximetry 96 08/16/25 09:46 GENERAL: Alert 70-year-old male and in no acute distress. 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 RESPIRATORY: Breath sounds equal bilaterally, no wheezes rales or rhonchi. ABDOMEN: Soft, nontender. Normoactive bowel sounds all 4 quadrants. No guarding or rebound. EXTREMITIES: Normal range of motion, no clubbing or edema. Neurovascularly intact NEUROLOGICAL: Alert and oriented x4.Normal gait and speech. Cranial nerves II through XII grossly intact. Good [id number], good [id number], strength equal bilaterally, no dysarthria or aphasia, sensation in tact to soft touch bilaterally, no visual changes, no facial droop SKIN: Warm, dry, no laceration, no petechiae, no rashes or lesions. Scores NIH Stroke Scale Level of Conciousness: Alert, keenly responsive Ask month/age: Answers both questions correctly. Open/close eyes, close hand: Performs both tasks correctly Best gaze horizontal: Normal Visual sarabia: No visual loss Facial palsy: Normal symetrical movement Left arm drift: No drift for full 10 sec Right arm drift: No drift for full 10 sec Left leg drift: No drift for full 5 sec Right leg drift: No drift for full 5 sec Limb ataxia: Absent Sensory on face/arms/legs: Normal, no sensory loss Best language: No aphasia, normal Dysarthria: Normal Extinction or inattention: No abnormality Total NIH Stroke scale score: 0 Course Orders Ordered: ED Orders 08/16/25 09:49 XR chest 1V Stat EKG-12 Lead Stat 08/16/25 09:55 Complete Blood Count AUTO DIFF Stat Comprehensive Metabolic Panel Stat Lipase Stat Magnesium Stat NT-proBNP (BNP-Adult 18+) Stat PTT Partial Thromboplastin Alexis Stat Prothrombin Time INR Stat Troponin & CK Cardiac Panel Stat Discontinued Medications Sodium Chloride (Normal Saline 0.9%) 1,000 mls @ 1,000 mls/hr IV BOLUS ONE Stop: 08/16/25 11:33 Last Infusion: 08/16/25 12:02 Dose: Infused Documented By: Admin: 08/16/25 10:44 Dose: 1,000 mls/hr Documented By: CHANTE Meclizine HCl (Meclizine Hcl 12.5 Mg Tablet) 50 mg PO NOW ONE Stop: 08/16/25 10:35 Last Admin: 08/16/25 11:00 Dose: 50 mg Documented By: CHANTE Ondansetron HCl (Ondansetron 4 Mg/2 Ml Inj) 4 mg IV NOW ONE Stop: 08/16/25 10:35 Last Admin: 08/16/25 10:43 Dose: 4 mg Documented By: CHANTE Vital Signs Vital signs: Vital Signs - 8 hr 08/16/25 09:46 08/16/25 09:47 08/16/25 09:47 Temperature Pulse Rate 83 81 Pulse Rate [Orthostatic Lying] Pulse Rate [Orthostatic Sitting] Pulse Rate [Orthostatic Standing] Respiratory Rate Blood Pressure 149/87 H Pulse Oximetry 96 93 Oxygen Delivery Method 08/16/25 10:00 08/16/25 10:00 08/16/25 10:01 Temperature 97.7 F Pulse Rate 76 84 Pulse Rate [Orthostatic Lying] Pulse Rate [Orthostatic Sitting] Pulse Rate [Orthostatic Standing] Respiratory Rate 28 H 16 Blood Pressure 159/100 H 149/87 H Pulse Oximetry 94 97 Oxygen Delivery Method Room Air 08/16/25 10:15 08/16/25 10:15 08/16/25 10:30 Temperature Pulse Rate 54 L 59 L Pulse Rate [Orthostatic Lying] Pulse Rate [Orthostatic Sitting] Pulse Rate [Orthostatic Standing] Respiratory Rate 10 L 20 Blood Pressure 135/86 Pulse Oximetry 94 96 Oxygen Delivery Method 08/16/25 10:30 08/16/25 10:45 08/16/25 10:45 Temperature Pulse Rate 48 L Pulse Rate [Orthostatic Lying] Pulse Rate [Orthostatic Sitting] Pulse Rate [Orthostatic Standing] Respiratory Rate 11 L Blood Pressure 149/88 H 133/79 Pulse Oximetry 95 Oxygen Delivery Method 08/16/25 11:00 08/16/25 11:00 08/16/25 11:15 Temperature Pulse Rate 49 L 44 L Pulse Rate [Orthostatic Lying] Pulse Rate [Orthostatic Sitting] Pulse Rate [Orthostatic Standing] Respiratory Rate 12 10 L Blood Pressure 136/81 Pulse Oximetry 95 94 Oxygen Delivery Method 08/16/25 11:15 08/16/25 11:30 08/16/25 11:30 Temperature Pulse Rate 43 L Pulse Rate [Orthostatic Lying] Pulse Rate [Orthostatic Sitting] Pulse Rate [Orthostatic Standing] Respiratory Rate 14 Blood Pressure 144/78 H 139/76 Pulse Oximetry 97 Oxygen Delivery Method 08/16/25 11:45 08/16/25 11:45 08/16/25 12:00 Temperature Pulse Rate 45 L 47 L Pulse Rate [Orthostatic Lying] Pulse Rate [Orthostatic Sitting] Pulse Rate [Orthostatic Standing] Respiratory Rate 13 15 Blood Pressure 140/77 Pulse Oximetry 98 98 Oxygen Delivery Method 08/16/25 12:00 08/16/25 12:05 Temperature Pulse Rate Pulse Rate [Orthostatic Lying] 44 L Pulse Rate [Orthostatic Sitting] 60 Pulse Rate [Orthostatic Standing] 68 Respiratory Rate Blood Pressure 141/86 H Pulse Oximetry Oxygen Delivery Method MDM - Dizziness Lab Data 08/16/25 09:55 08/16/25 09:55 Labs: Lab Results 08/16/25 Range/Units 09:55 WBC 6.3 (4.5-11.0) X10^3/uL RBC 5.68 (4.5-5.9) X10^6/uL Hgb 16.6 (13.5-17.5) g/dL Hct 48.5 (41-53) % MCV 85.4 (80-100) fL MCH 29.2 (26-34) PG MCHC 34.2 (30-36) % RDW 14.8 (11.6-14.8) % Plt Count 182 (150-400) X10^3/uL Neut % (Auto) 49.6 L (50-75) % Lymph % (Auto) 39.1 (25-40) % Jessamine % (Auto) 8.6 (3-14) % Eos % (Auto) 1.8 L (2-4) % Baso % (Auto) 0.9 (0-2) % Neut # (Auto) 3100 (0175-6717) /uL Lymph # (Auto) 2500 (1095-7577) /uL Jessamine # (Auto) 500 (0-900) /uL Eos # (Auto) 100 (0-450) /uL Baso # (Auto) 100 (0-100) /uL PT 10.2 (9.4-12.5) SECONDS INR 0.9 (0.9-1.3) APTT 17 L (25.1-36.5) SECONDS Sodium 140 (137-145) mmol/L Potassium 4.1 (3.4-5.1) mmol/L Chloride 105 (98-107) mmol/L Carbon Dioxide 26 (22-32) mmol/L BUN 19 (9-20) mg/dL Creatinine 0.90 (0.66-1.25) mg/dL Estimated GFR > 60 (>60) mL/min BUN/Creatinine Ratio 21.1 (6-22) Glucose 116 H (70-99) mg/dL Calcium 9.0 (8.4-10.2) mg/dL Magnesium 2.0 (1.6-2.3) mg/dL Total Bilirubin 0.8 (0.2-1.3) mg/dL AST 40 (17-59) IU/L ALT 39 (<50) IU/L Alkaline Phosphatase 57 (38-126) U/L Total Creatine Kinase 85 (55-170) U/L Troponin I < 0.012 (0.01-0.034) ng/mL NT-Pro-B Natriuret Pep 53 (<125) pg/mL Total Protein 7.6 (6.3-8.2) g/dL Albumin 4.7 (3.5-5.0) g/dL Globulin 2.9 (1.7-4.1) g/dL Albumin/Globulin Ratio 1.6 (1.0-2.8) Lipase 145 (23-300) U/L ECG Data Attestation: I personally reviewed and interpreted this ECG as follows: Prior ECG tracings: available for review Interpretation: Normal sinus rhythm rate 66 WA interval 156 QRS [address] changes no priors to compare MDM Narrative Medical decision making narrative: [facility] [place] CC: Dizziness Complicating co-morbidities: Supple hyperlipidemia but only takes omeprazole Data collected from: Patient and Medical records reviewed: Limited records he has been seen by the walk-in clinic Differential considered: Benign paroxysmal positional vertigo posterior stroke, arrhythmia Exam documented above, pertinent findings include: NIH of 0 no nystagmus awake alert right eye is process Lab Test results independently reviewed as above. Pertinent findings: CBC no leukocytosis no anemia CMP no electrolyte abnormality no SONIA glucose 116 Troponin negative Bilirubin liver enzymes within normal limits Independently reviewed EKG as above Sinus rhythm no arrhythmia Imaging studies independently reviewed: Chest x-ray no acute cardiopulmonary process Consultations: None Treatments: IV fluids Reglan Zofran Re-evaluations: Patient overall is feeling much better after fluids and medication. He is able to sit up without anymore spinning. Discussion: Patient is 70-year-old male presents today with sudden onset of dizziness. Symptoms are definitely positional. Blood work is overall reassuring. Feeling better after medication. I suspect benign paroxysmal positional vertigo. Lower suspicion for posterior stroke. NIH of 0 feels like he is ready and able to go home. We discussed Olimpia maneuver but at this time not needed Discharge Plan Departure Patient Disposition: Home Clinical Impression: Vertigo Instructions: DI for Vertigo Activity Restrictions/Additional Instructions: *You have been diagnosed with vertigo *What to do: At this time go home and get some rest I hope that this resolves for You can Google Olimpia maneuver, and it may help you you can do it at home *Continue to take medications as directed Meclizine 25-50 mg every 8 hours for dizzy Zofran 4 mg every 8 hours for nausea or vomiting *Follow up with your primary care provider in 2-3 days or call [phone] *Return to ER if you should have persistent vomiting weakness headache or any new, worsening or concerning symptoms Prescriptions: New meclizine 25 mg tablet 25 mg PO TID PRN (Reason: dizziness) Qty: 20 0RF ondansetron 4 mg tablet,disintegrating 4 mg PO Q8H PRN (Reason: nausea and vomiting) Qty: 10 0RF No Action rosuvastatin 5 mg tablet 5 mg PO DAILY Qty: 90 3RF Rx Instructions: to be taken in the evening omeprazole 20 mg capsule,delayed release(DR/EC) 20 mg PO DAILY Qty: 90 3RF rosuvastatin 5 mg tablet 5 mg PO Q OTHER DAY Rx Instructions: to be taken in the evening Referrals: Sammy Sandoval ARNP [Primary Care Provider, Medical] Stand Alone Forms: Patient Portal/API
[2025-08-16 10:16] LABS: Alanine Aminotransferase 39 IU/L (<50); Albumin 4.7 g/dL (3.5-5.0); Albumin Globulin Ratio 1.6 (1.0-2.8); Alkaline Phosphatase 57 U/L (38-126); Blood Urea Nitrogen 19 mg/dL (9-20); Calcium 9.0 mg/dL (8.4-10.2); Carbon Dioxide 26 mmol/L (22-32); Chloride 105 mmol/L (98-107); Creatine Kinase 85 U/L (55-170); Estimated Glomerular Filt Rate > 60 mL/min (>60); Globulin 2.9 g/dL (1.7-4.1); Glucose 116 mg/dL (70-99); Lipase 145 U/L (23-300); Magnesium 2.0 mg/dL (1.6-2.3); PTT Partial Thromboplastin Tim 17 SECONDS (25.1-36.5); Potassium 4.1 mmol/L (3.4-5.1); Sodium 140 mmol/L (137-145); Total Protein 7.6 g/dL (6.3-8.2)
[2025-08-16 10:17] LABS: HEMOLYSIS 51 (0-50)
[2025-08-16 10:28] LABS: NT-proBNP (BNP-Adult 18+) 53 pg/mL (<125); Troponin I < 0.012 ng/mL (0.01-0.034)
[2025-08-16] MEDS: ONDANSETRON 4 MG/2 ML INJ IV (10:43)
[2025-08-16] MEDS: SODIUM CHLORIDE 0.9% 1,000 ML 1000 ML IV (10:44)
[2025-08-16] MEDS: MECLIZINE HCL 12.5 MG TABLET 50 MG PO (11:00)
== END 2025-08-16 12:17 | disposition home or self-care (01) ==
PROVIDERS: Emergency Provider Emergency Medicine; PCP Registered Nurse Diabetes Educator
DX: R42 Dizziness and giddiness (principal)
CPT/HCPCS: 71045; 80053; 82550; 83690; 83735; 83880; 84484; 85025; 85610; 85730; 93005; 96361; 96374; 99284; J2405; J7030

== ENCOUNTER → 2025-09-05 06:46 | Outpatient (CLI) | payer MEDICARE, SELFPAY ==
[2024-02-04 13:37] VITALS: BMI 27.3
[2025-09-05 08:50] LABS: Alanine Aminotransferase 37 IU/L (<50); Albumin 4.3 g/dL (3.5-5.0); Albumin Globulin Ratio 1.7 (1.0-2.8); Alkaline Phosphatase 58 U/L (38-126); Blood Urea Nitrogen 17 mg/dL (9-20); Calcium 8.9 mg/dL (8.4-10.2); Carbon Dioxide 28 mmol/L (22-32); Chloride 103 mmol/L (98-107); Cholesterol 185 mg/dL (140-199); Estimated Glomerular Filt Rate > 60 mL/min (>60); Globulin 2.6 g/dL (1.7-4.1); Glucose 99 mg/dL (70-99); HDL Cholesterol 58 mg/dL (40-60); HEMOLYSIS < 15 (0-50); Potassium 4.1 mmol/L (3.4-5.1); Sodium 138 mmol/L (137-145); Total Protein 6.9 g/dL (6.3-8.2); Triglycerides 92 mg/dL (35-150)
== END ==
PROVIDERS: PCP Registered Nurse Diabetes Educator; Referring Provider Registered Nurse Diabetes Educator; Visit Provider Registered Nurse Diabetes Educator
DX: E78.5 Hyperlipidemia, unspecified (principal)
CPT/HCPCS: 36415; 80053; 80061